=== PATIENT | male | born 1950 | race Caucasian/White ===

== ENCOUNTER 2024-05-13 09:48 | Inpatient (IN) | payer MEDICARE, SELFPAY ==
[2024-05-13] VITALS (28 sets, daily range): BP systolic 111–220; BP diastolic 67–113; PULSE 67–109; RESP 12–22; TEMP 36.2–36.8; O2SAT 94–99; BMI 28.3; BMI 28.2
--- NOTE | 2024-05-13 | ECG_ITS ---
Test Reason : hypertesive Blood Pressure : */* mmHG Vent. Rate : 74 BPM Atrial Rate : 74 BPM P-R Int : 176 ms QRS Dur : 96 ms QT Int : 408 ms P-R-T Axes : 16 48 83 degrees QTcB Int : 452 ms Normal sinus rhythm Nonspecific ST and T wave abnormality Abnormal ECG No previous ECGs available Referred By: Generic ED Physician Electronically Signed By: ROOSEVELT BYRD
--- NOTE | ~2024-05-13 | MR_ITS ---
EXAMINATION: MR BRAIN WITHOUT CONTRAST CLINICAL INFORMATION: Stroke. COMPARISON: No priors. Correlated to CT dated May 13, 2024. TECHNIQUE: MRI of the brain was obtained using routine sequences without contrast. FINDINGS: No restricted diffusion. No acute intracranial hemorrhage, mass effect, midline shift, hydrocephalus or herniation. Gardner-white matter differentiation is normal. Flow-void signal within the main cerebral vessels is normal. There is a focal 9 mm hyperintense T2 FLAIR signal centered in the left tympanic cavity region. There is a well-defined 27 x 9 mm isointense T1 slightly hyperintense T2 FLAIR no restricted diffusion ovoid shaped signal abnormality in the left preauricular region. Sellar/suprasellar region is normal. Craniocervical junction is intact and normal. Old lacunar infarcts, basal ganglia particularly the left thalamus. Prominence of the extra-axial CSF spaces cerebral sulci and ventricles. Intraocular signal abnormality best seen on the CT examination. Mucosal thickening in the paranasal sinuses. Focal 9 mm hyperintense T2 FLAIR signal in the superficial right parotid gland. MR/MR head/brain wo con IMPRESSION: No acute stroke/nonhemorrhagic ischemia. Old lacunar infarcts. Signal abnormality in the left tympanic cavity a cholesteatoma cannot be excluded. 27 mm soft tissue lesion, left preauricular region. Electronically signed by: Edgardo Akers MD 05/13/2024 04:08 PM [facility]
--- NOTE | ~2024-05-13 | CT_ITS ---
EXAMINATION: CTA NECK WITH CONTRAST (STROKE) CTA BRAIN WITH CONTRAST (STROKE) CLINICAL INFORMATION: Suspect acute stroke. Assess for major vessel occlusion. Right hemibody weakness. Please call report. COMPARISON: Correlated to noncontrast CT brain same day. TECHNIQUE: CTA of the head and neck was performed in the axial plane from the mediastinum to the skull vertex using 70 mL Omnipaque 350 intravenous contrast. Additional reformatted multiplanar images including maximum intensity projection MIP images are generated on the CT workstation. This CT examination was performed using dose optimization techniques as appropriate, variously including the following: *Automated exposure control *Adjustment of mA and/or kV according to patient size (this includes techniques or standardized protocols for targeted exams where dose is matched to indication/reason for exam; i.e. extremities or head) *Use of iterative reconstruction technique DLP: 1541 mGy centimeter. FINDINGS: The degree of stenosis determined by criteria similar to NASCET. Brain: No acute intracranial hemorrhage, mass effect, midline shift, hydrocephalus or herniation. Bilateral multifocal patchy and confluent deep periventricular white matter hypodensities involving centrum semiovale and huber radiata. Calcified plaques in the V4 segments of the vertebral arteries and the cavernous supracavernous segments both ICA. Old lacunar infarct left thalamus. Volume loss in macrocystic encephalomalacia, left occipital region. Intraocular radiopaque increased density, right eyeball. Dystrophic calcifications in the left eyeball. Radiopaque extraocular prosthesis bilaterally. Prominence of the extra-axial CSF spaces cerebral sulci and ventricles. Increased density left tympanic cavity. Mucosal thickening paranasal sinuses. Chest CTA: Calcified plaques in the thoracic aorta. Normal diameter without intraluminal flap. Neck CTA: Right CCA: Normal patency. No focal stenosis. No intimal flap. Right ICA: Normal patency. Calcified plaque in the origin representing 50% stenosis. No intimal flap. Tortuosity. Left CCA: Normal patency. Tortuosity. No focal stenosis. No intimal flap. Left ICA: Irregular mixed plaques in the proximal segment. Normal patency. Less than 50% stenosis in the proximal segment. Tortuosity. No intimal flap. V1/V2 segments of the vertebral arteries: Normal patency. No focal stenosis or intimal flap. Tortuosity at the origin of the left vertebral artery. Both orientating from the subclavian arteries. Left vertebral artery slightly dominant. Brain CTA: Anterior cerebral circulation: ICAs: Mixed plaques in the cavernous and supraclinoid segments. No focal stenosis. No abrupt cut off. MCA's: No focal stenosis. No abrupt cut off. Bifurcation/trifurcation demonstrated no vascular irregularity. ACAs: No focal stenosis. No abrupt cut off. Normal patency. Small caliber right A1 segment. Anterior communicating artery is patent. Ophthalmic arteries are patent without gross vascular irregularity. Left posterior communicating artery is patent. Right posterior communicating artery is not identified likely small caliber. Posterior cerebral circulation: V3/V4 segments are patent without focal stenosis or intimal flap. Left vertebral artery slightly dominant. Posterior inferior cerebellar arteries are patent. Basilar artery is patent without focal stenosis or intimal flap. Superior cerebellar arteries are patent. career coordinator: Abrupt cut off of the left P2/3 segment. Contour irregularity right CCA without abrupt cut off or focal stenosis. Ancillary findings: Paraseptal emphysematous changes in the upper lung lobes. Mosaic pattern both lungs. 10 mm gas-filled abnormality at the 7:00 position of the trachea/superior mediastinum. Multilevel cervical spondylosis more conspicuous at C4-5 and C5-6 level resulting in reverse curvature. CT/CT angio head neck STROKE IMPRESSION: Concerning embolus at the left P2/3 segment. 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 Calcified plaques both carotid bulbs proximal ICAs representing less than 50% stenosis. No dissection. Atherosclerosis disease. This critical test result is communicated to: Physician studio assistant in the emergency department, Lupe Hui at 11:18 AM on May 13, 2024. Electronically signed by: Edgardo Akers MD 05/13/2024 11:14 AM [facility]
--- NOTE | ~2024-05-13 | CT_ITS ---
EXAMINATION: CT HEAD WITHOUT CONTRAST (STROKE PROTOCOL) CLINICAL INFORMATION: Stroke protocol. Right hemibody weakness COMPARISON: None available. TECHNIQUE: Contiguous axial imaging was performed from the skull base to vertex without intravenous administration of contrast. This CT examination was performed using dose optimization techniques as appropriate, variously including the following: *Automated exposure control *Adjustment of mA and/or kV according to patient size (this includes techniques or standardized protocols for targeted exams where dose is matched to indication/reason for exam; i.e. extremities or head) *Use of iterative reconstruction technique DLP: 763 mGy centimeters FINDINGS: No acute intracranial hemorrhage, mass effect, midline shift, hydrocephalus or herniation. Gardner-white matter differentiation is normal. Bilateral multifocal patchy deep periventricular white matter hypodensities involving centrum semiovale and huber radiata. Old lacunar infarct, left thalamus. Posterior cranial fossa contents demonstrated no acute intracranial hemorrhage. Calcified plaques in the V4 segments of the vertebral arteries and the cavernous supracavernous segments both ICAs. Radiopaque material intraocular right eyeball likely treatment of retinal detachment. Radiopaque extraocular or listhesis. Dystrophic calcifications in the left eyeball with the volume loss. Mucosal thickening, paranasal sinuses. Increased density in the left tympanic cavity. Poorly pneumatized mastoid air cells bilaterally. No acute fracture in the bony calvarium. CT/CT head for STROKE IMPRESSION: No acute intracranial hemorrhage. Small vessel occlusive disease. Superimposed acute stroke/nonhemorrhagic ischemia cannot be excluded. This critical result was discussed with physician assistant to the ceo Lupe Hui via [place] connect at 10:40 AM hours on May 13, 2024.. It was ascertained that the content and urgency of the report was understood at the time of direct communication. Electronically signed by: Edgardo Akers MD 05/13/2024 10:40 AM [facility] [place]
--- NOTE | 2024-05-13 10:12 | ED_ITS ---
HPI - General Adult General Chief complaint: Neuro Symptoms/Deficit Stated complaint: RT LEG/ARM NUMBNESS RESOLVED,HTN 231/113 PER EMS Time Seen by Provider: 05/13/24 09:58 Source: patient Mode of arrival: ambulatory Limitations: no limitations History of Present Illness ED Provider: LILI Hui HPI narrative: This is a 74-year-old male past medical history significant for legal blindness, hypertension, hyperlipidemia presenting to the emergency department with episode of right upper and right lower extremity weakness that started at approximately 09:00 he reports all of a sudden he felt like his right side was heavy, this lasted 5-10 minutes and resolved just prior to him coming to the emergency department he states. He still feels like something is off however he is not sure exactly what does not feel right. He tells me has a history of high blood pressure however he is not on medications in the past when they have placed him on blood pressure meds his blood pressure has gone very low so they discontinued them. He denies any falls or trauma. Denies dizziness, vision changes, headache, nausea, abdominal pain, chest pain, shortness of breath. Related Data Allergies Allergy/AdvReac Type Severity Reaction Status Date / Time No Known Allergies Allergy Verified 05/13/24 10:01 [No Known Allergies*] Review of Systems 2 Review of Systems: Yes all other systems are reviewed and are negative PMFSH Past Medical History Attestation statement: The following information was validated with the patient. Source: old records reviewed and nursing notes reviewed Social History Social History Smoked in Last 30 Days: No Use of substances other than those prescribed or required for medical reasons: No Advance Directives: No Advance Directives Information Provided: Yes Do you have a plan to hurt others: No Plan Physical Exam ED Vital Signs: Vital Signs - 24 hr 05/13/24 09:56 05/13/24 10:18 05/13/24 10:46 Temperature 97.6 F Pulse Rate 72 73 79 Respiratory Rate 18 17 14 Blood Pressure 200/100 H 188/90 H 183/93 H Pulse Oximetry 98 96 98 Oxygen Delivery Method Room Air Room Air Room Air 05/13/24 11:00 05/13/24 11:13 05/13/24 11:14 Temperature 97.4 F 97.1 F Pulse Rate 88 75 71 Respiratory Rate 19 16 Blood Pressure 208/82 H 202/103 H 202/103 H Pulse Oximetry 97 97 Oxygen Delivery Method Room Air Room Air 05/13/24 11:17 05/13/24 11:19 05/13/24 11:40 Temperature Pulse Rate 70 72 72 Respiratory Rate 18 14 18 Blood Pressure 193/105 H 180/90 H 152/99 H Pulse Oximetry 97 98 96 Oxygen Delivery Method Room Air Room Air Room Air 05/13/24 11:46 Temperature 97.5 F Pulse Rate 73 Respiratory Rate 16 Blood Pressure 170/78 H Pulse Oximetry 98 Oxygen Delivery Method Room Air BMI result Body Mass Index 28.3 HTN noted - IV labetalol ordered 5 mg IVP Appearance: Alert.? Oriented X3.? No acute distress.? Head: Normocephalic, atraumatic, no step-offs or deformities Eyes: Pupils equal, round and reactive to light. Neck: Normal inspection.? Neck supple.? CVS: Normal heart rate and rhythm.? Pulses normal.? Respiratory: No respiratory distress.? Breath sounds normal.? Abdomen: Soft and nontender.? Skin: Skin warm and dry.? Normal skin color.? Normal skin turgor.? Extremities: No lower extremity edema.? No calf ttp. 5/5 strength to LUE and LLE 5-/5 to RUE and RLE Back: No midline tenderness, no C-spine tenderness, full range of motion, no CVA tenderness bilaterally Neuro: Oriented X 3.? No motor deficit.? No sensory deficit. CN 2-12 intact Course Reevaluation(s) Reevaluation #1: Preliminary read from radiologist Panchito, stroke alert negative for intracranial hemorrhage. CTA pending. Time: 10:36 Reevaluation #2: No acute intracranial hemorrhage noted on dry CT scan of head. Small-vessel occlusive disease noted superimposed acute stroke and not hemorrhagic ischemia can not be excluded. CTA is still pending. Call out to neurology as patient is still in the window for TNK. His symptoms have subsided and his NIH stroke scale is now 0 however very concerning story for possible CVA Time: 11:04 Reevaluation #3: TNK indicated per neurology Dr. Espinosa. Will order TNK at this time patient was re weighed 102.6 kg. Will order 25 mg of IV push and active place at this time. I did go over risks and benefits with this patient he verbalizes understanding. I explained to him he would likely go to the ICU for neurological checks and I explained the risk for bleeding. He is not on a blood thinner. Last known well time is 09:00. Time: 11:10 Additional Reevaluation(s): Patient will be admitted to the ICU Medications Administered Discontinued Medications Generic Name Dose Route Start Last Admin Trade Name Aguilar PRN Reason Stop Dose Admin Iohexol 70 ml 05/13/24 10:39 05/13/24 10:40 Iohexol 350 Mg/Ml 100 Ml Infus..Btl IV 05/13/24 10:40 70 ml ONCE ONE Administration Labetalol HCl 5 mg 05/13/24 10:27 05/13/24 11:14 Labetalol Hcl 100 Mg/20 Ml Vial IVPUSH 05/13/24 10:28 5 mg ONCE ONE Administration Tenecteplase 25 mg 05/13/24 11:10 05/13/24 11:11 Tenecteplase 50 Mg/10 Ml Kit IVPUSH 05/13/24 11:11 25 mg ONCE ONE Administration Medical Decision Making Medical Decision Making [facility] Narrative: 1015 74 year old male presents w/ episode of RUE and RLE weakness that started around 9 am and lasted around 10 minutes PE- 5/5 strength to LUE and LLE 5-/5 to RUE and RLE . HTN noted Hx and pe concerning for TIA versus CVA versus hypertensive urgency/emergency. Will rule out head bleed. Plan labs, imaging. Based off of the last known well time and patient's symptoms stroke alert was paged overhead and patient was taken over to CAT scan immediately. Patient did not come in as a stroke alert into the department, initially he was waiting for placement in the main emergency department became ill over to emergency minor care. NIH Stroke Scale/Score (NIHSS) from [facility] on 05/13/2024 All calculations should be rechecked by clinician prior to use RESULT SUMMARY: 2 points NIH Stroke Scale INPUTS: 1A: Level of consciousness ?> 0 = Alert; keenly responsive 1B: Ask month and age ?> 0 = Both questions right 1C: 'Blink eyes' & 'squeeze hands' ?> 0 = Performs both tasks 2: Horizontal extraocular movements ?> 0 = Normal 3: Visual bhakta ?> 0 = No visual loss 4: Facial palsy ?> 0 = Normal symmetry 5A: Left arm motor drift ?> 0 = No drift for 10 seconds 5B: Right arm motor drift ?> 1 = Drift, but doesn't hit bed 6A: Left leg motor drift ?> 0 = No drift for 5 seconds 6B: Right leg motor drift ?> 1 = Drift, but doesn't hit bed 7: Limb Ataxia ?> 0 = No ataxia 8: Sensation ?> 0 = Normal; no sensory loss 9: Language/aphasia ?> 0 = Normal; no aphasia 10: Dysarthria ?> 0 = Normal 11: Extinction/inattention ?> 0 = No abnormality Differential Diagnosis Differential Diagnoses: The differential diagnosis associated with the presentation includes (Hx and pe concerning for TIA versus CVA versus hypertensive urgency/emergency. Will rule out head bleed.) Admission/Observation Consideration of admission/observation: Escalation of care including admission/observation considered (possible ) Lab Data MDM Lab Attestation statement: I reviewed the patient's lab results. 05/13/24 10:17 05/13/24 10:17 Labs: Lab Results 05/13/24 05/13/24 05/13/24 Range/Units 10:17 10:18 10:20 WBC 5.4 (4.8-10.8) X10*3/uL RBC 5.20 (4.60-5.80) X10*6/uL Hgb 15.3 (14.0-18.0) g/dl Hct 46.0 (42.0-52.0) % MCV 88.5 (80.0-98.0) fL MCH 29.4 (27.0-33.0) pg MCHC 33.3 (31.0-36.0) g/dl RDW 13.1 (11.0-16.0) % Plt Count 238 (160-400) X10*3/uL MPV 9.6 (9.4-12.4) fL Immature Gran % (Auto) 0.4 (0.0-0.4) % Neut % (Auto) 63.0 (45-73) % Lymph % (Auto) 27.2 (20-40) % [place] % (Auto) 6.8 (2-11) % Eos % (Auto) 2.0 (0-4) % Baso % (Auto) 0.6 (0-2) % Lymph # (Auto) 1.5 (1.2-4.9) X10*3/uL [place] # (Auto) 0.4 (0.1-1.2) X10*3/uL Eos # (Auto) 0.1 (0.0-0.4) X10*3/uL Baso # (Auto) 0.0 (0.0-0.2) X10*3/uL Abs Immat Gran (auto) 0.02 (0.00-0.03) X10*3/uL Absolute Neuts (auto) 3.4 (2.0-8.3) x10*3/uL Absolute Nucleated RBC 0.000 (0.0-0.012) X10*3/uL Nucleated RBC % (auto) 0.0 (0.0-0.2) /100WBC Hold Purple Top SEE NOTE PT 10.0 L (10.9-12.4) SEC Whole Blood PT 11.1 (11.1-13.5) sec INR 0.9 (0.9-1.1) Whole Blood INR 0.9 (0.9-1.1) APTT 29.4 (26.0-36.8) SEC Sodium 140 (135-145) mmol/L Potassium 4.1 (3.3-5.1) mmol/L Chloride 108 (96-108) mmol/L Carbon Dioxide 23 (22-29) mmol/L Anion Gap 13 (12-20) BUN 21 H (9-16) mg/dL Creatinine 1.00 (0.5-1.4) mg/dL Estim Creat Clear Calc 30.0 Estimated GFR > 60 POC Glucose 119 H (60-115) mg/dL Random Glucose 108 (60-115) mg/dL Calcium 9.6 (8.4-10.2) mg/dL Troponin I High Sens 3.2 (<3.5-35.0) ng/L Triglycerides 192 H (<150) mg/dL Cholesterol 231 H (<200) mg/dL LDL Cholesterol, Calc 144 H (<100) mg/dL HDL Cholesterol 49 (>40) mg/dL Influenza Type A (PCR) NEGATIVE (Negative) Influenza Type B (PCR) NEGATIVE (Negative) RSV RNA Qual (PCR) NEGATIVE (Negative) SARS-CoV-2 RNA (RT-PCR) NEGATIVE (Negative) Independent Interpretation I performed an independent interpretation of an: EKG (Ventricular rate of 74 NV normal, QRS normal, QT/QTC normal. EKG normal sinus rhythm no ST elevations or inversions concerning for acute ischemia.) and CT Scan (CT/CT angio head neck STROKE IMPRESSION: Concerning embolus at the left P2/3 segment. Consider a left [employer] nonhemorrhagic stroke/acute ischemia. Calcified plaques both carotid bulbs proximal ICAs representing less than 50% stenosis. No dissection. Atherosclerosis disease.) Radiology Impression Discussion of test interpretation with radiology: I have reviewed the radiologist's reading. Independent Historian Clinical information obtained from an independent historian. History obtained from or confirmed by: EMS Critical Care Time Critical Care Time Critical Care Time: Yes Total Critical Care Time: 45 Attestation: I attest to this time spent taking care of the patient, obtaining history, physical, reviewing labs, imaging, treatment of patients condition +/- specialist/hospitalist consult Discharge Plan Discharge Clinical Impression: Right sided weakness Stroke due to embolism Qualifiers: Precerebral and cerebral artery: posterior cerebral artery Laterality of affected vessel: left Qualified Code(s): I63.432 - Cerebral infarction due to embolism of left posterior cerebral artery Patient Disposition: Admitted As Inpatient Print Language: Yakut
--- NOTE | 2024-05-13 10:17 | PC.NURSE ---
pt biba from home c/o right upper and right lower extremity weakness/numbness/tingling x 0900. denies dizziness/lightheadedness/headache. sx resolved upon EMS arrival. hypertensive @ 220/113 upon EMS arrival. 200/100 upon ED arrival. hx HTN - taken off BP medication x a few years ago. provider notified/aware of findings. stroke alert initiated overhead. ekg performed. labs obtained/sent to lab. PT/INR performed by tech. no slurred speech noted. face symmetrical. strength equal bilaterally. pt on RA w/o difficulty. no sob/wob noted. respirations even/unlabored. plan of care ongoing.
[2024-05-13 10:23] LABS: MANUAL DIFF FLAG NO
[2024-05-13 10:28] LABS: Prothrombin Time Whole Bld POC 11.1 sec (11.1-13.5); ~PT, ~INR - Anti Coag Clinic 0.9 (0.9-1.1)
[2024-05-13 10:28] LABS: Basophils Percent Auto 0.6 % (0-2); Eosinophils Absolute Auto 0.1 X10*3/uL (0.0-0.4); Hemoglobin 15.3 g/dl (14.0-18.0); Imm Gran Abs Auto 0.02 X10*3/uL (0.00-0.03); Imm Gran Pct Auto 0.4 % (0.0-0.4); Lymphocytes Absolute Auto 1.5 X10*3/uL (1.2-4.9); Lymphocytes Percent Auto 27.2 % (20-40); Mean Corpuscular HGB Conc 33.3 g/dl (31.0-36.0); Mean Corpuscular Hemoglobin 29.4 pg (27.0-33.0); Mean Corpuscular Volume 88.5 fL (80.0-98.0); Mean Platelet Volume 9.6 fL (9.4-12.4); Monocytes Absolute Auto 0.4 X10*3/uL (0.1-1.2); Monocytes Percent Auto 6.8 % (2-11); Neutrophils Absolute Auto 3.4 x10*3/uL (2.0-8.3); Platelet Count 238 X10*3/uL (160-400); Red Cell Distribution Width 13.1 % (11.0-16.0); White Blood Count 5.4 X10*3/uL (4.8-10.8)
--- NOTE | 2024-05-13 10:28 | PC.NURSE ---
pt to CT at this time.
[2024-05-13 10:29] LABS: Glucose, Whole Blood 119 mg/dL (60-115)
[2024-05-13 10:36] LABS: INTERNATIONAL NORM RATIO 0.9 (0.9-1.1)
[2024-05-13 10:39] LABS: Partial Thromboplastin Time 29.4 SEC (26.0-36.8)
[2024-05-13] MEDS: iohexoL 350 MG/ML 100 ML INFUS..BTL 70 ML IV (10:40)
[2024-05-13 10:42] LABS: Stroke Lab Use COMPLETE
[2024-05-13 10:50] LABS: Anion Gap 13 (12-20); Blood Urea Nitrogen 21 mg/dL (9-16); Calcium 9.6 mg/dL (8.4-10.2); Carbon Dioxide 23 mmol/L (22-29); Chloride 108 mmol/L (96-108); Cholesterol 231 mg/dL (<200); Estimated Glomerular Filt Rate > 60; Glucose Random 108 mg/dL (60-115); HDL Cholesterol 49 mg/dL (>40); LDL Cholesterol Calculated 144 mg/dL (<100); Potassium 4.1 mmol/L (3.3-5.1); Sodium 140 mmol/L (135-145); Triglycerides 192 mg/dL (<150)
[2024-05-13 10:52] LABS: Troponin-I High Sensitivity 3.2 ng/L (<3.5-35.0)
--- NOTE | 2024-05-13 10:59 | PC.NURSE ---
pt returned from CT. neuros remain intact. pt remains hypertensive - otherwise vss and up to date. nsr on the pvc monitor. pt assessed by stroke educator, Rosa Maria, RN at this time. pt also passed nursing swallow evaluation w/o difficulty. no complications noted. respirations remain even/unlabored. plan of care ongoing. call scott placed within reach.
[2024-05-13 11:08] LABS: Influenza A PCR NEGATIVE (Negative); Influenza B PCR NEGATIVE (Negative); Resp Syncy Virus RNA Qual PCR NEGATIVE (Negative); SARS COV2 PCR INHOUSE NEGATIVE (Negative)
[2024-05-13] MEDS: Tenecteplase 50 MG/10 ML KIT 25 MG IVPUSH (11:11)
[2024-05-13] MEDS: Labetalol HCL 100 MG/20 ML VIAL IVPUSH (11:14)
--- NOTE | 2024-05-13 11:14 | PC.NURSE ---
pt notified/aware of CTA results. pt speaking w/ provider in regards to plan of care at this time. pt noted to be TNK candidate. medication administered per provider order. medication verified w/ Genesis Mohr RN. BP wnl prior to medication administration. BP noted to increase s/p medication administration. labetalol administered per provider order. effectiveness pending. frequent vital signs being obtained. respirations remain even/unlabored. plan of care ongoing.
--- NOTE | 2024-05-13 11:30 | PC.NURSE ---
pt speaking w/ dr. brantley at this time.
--- NOTE | 2024-05-13 11:36 | PM.NEUROCN ---
History of Present Illness Data of Consult Service Date: 05/13/24 Primary Care Provider: Aniket Sheffield MD [facility] Reason for consult: Acute stroke 74 years old man with underlying history of hypertension and blindness from complications of glaucoma and multiple eye surgeries for different reasons including retinal detachment came to hospital with new onset of right-sided weakness. He was fine at 09:00 after which she noted numb and weak feeling in his right hand and when he tried to get up his right leg was giving away and was weak. There was no associated headache or speech or language difficulty any came to hospital. In emergency room he was noted to have mild right-sided weakness but no speech or language problem. After discussing his CTA results he was treated with TNK for acute ischemic infarction. I saw him after that in emergency room when he was feeling better. Review of Systems Review of Systems: No recent cold or flu-like illness or headache PMFSH Social History Social History Smoked in Last 30 Days: No Use of substances other than those prescribed or required for medical reasons: No Advance Directives: No Advance Directives Information Provided: Yes Do you have a plan to hurt others: No Plan Meds Allergies Allergy/AdvReac Type Severity Reaction Status Date / Time No Known Allergies Allergy Verified 05/13/24 10:01 [No Known Allergies*] Physical Exam Vital Signs: Vital Signs: Last Vital Signs Temp 97.1 F 05/13/24 11:13 Pulse 72 05/13/24 11:19 Resp 14 05/13/24 11:19 BP 180/90 H 05/13/24 11:19 Pulse Ox 98 05/13/24 11:19 O2 Del Method Room Air 05/13/24 11:19 BMI result Body Mass Index 28.3 Neuro: Other: He is alert and awake with normal spontaneity of speech fluency comprehension and affect. Pupils are nonreactive and irregular. Extraocular muscles are intact. He could not see me even close to his eyes. There was no pronator drift. There was no focal leg weakness. Deep tendon reflexes are absent with flexor plantars. Speech was normal. Results Labs 05/13/24 10:17 05/13/24 10:17 Labs: Short CBC 05/13/24 Range/Units 10:17 WBC 5.4 (4.8-10.8) X10*3/uL Hgb 15.3 (14.0-18.0) g/dl Hct 46.0 (42.0-52.0) % Plt Count 238 (160-400) X10*3/uL [facility] 05/13/24 10:17 Sodium 140 Potassium 4.1 Chloride 108 Carbon Dioxide 23 BUN 21 H Creatinine 1.[address] revealed mild cerebral atrophy and mild microvascular ischemic changes but no acute lesion. CTA revealed left P2/P3 embolus. Assessment and Plan (1) Stroke due to embolism: Qualifiers: Precerebral and cerebral artery: posterior cerebral artery Laterality of affected vessel: left Qualified Code(s): I63.432 - Cerebral infarction due to embolism of left posterior cerebral artery Status: Acute 74 years old man with acute left posterior cerebral artery embolic ischemic infarction with uncontrolled hypertension. He has underlying blindness complicated evaluation. Dizzy and was made to treat him with TNK to avoid further disability as there was no intra-arterial treatment available for this kind of lesion and it could very well worsened. On the other hand this type of lesion can easily be resolved with TNK. At this time he was doing fine and my recommendation is to admit him to ICU for a day for blood pressure management as per tPA protocol. I recommend starting him on anticoagulation at least for next 6 months starting 24 hours after TNK does. An MRI of brain without contrast is also recommended. Statin and blood pressure control is recommended. At the same time avoid hypotension. Procedures Date of Service Date of Service: 05/13/24
--- NOTE | 2024-05-13 11:38 | MHC.STROKE ---
Notified by Lupe PEARSON regarding stroke alert that she initiated in [facility] Pt in CT scan upon my arrival Pt was not called in as a stroke alert, however after nurse triage and provider eval, stroke alert initiated in ED. Pt was hypertensive for EMS and upon arrival to ED See vital sign hx. NIH 2 upon initial eval by provider. When reassessed after CT scan, NIH 0. Pt reports no complaints at this time. Pt states that he felt well yesterday. Went to bed around 11pm. Woke this am around 0630 and felt well. Pt states that around 0900 he started with some numbness in his finger on the right hand. This continued to increase and patient started with heaviness to RUE and LLE. Patient extremely hypertensive for EMS. Upon arrival to ED, blood pressure still elevated. After provider spoke with Dr. Espinosa, TNK ordered and administered at 1111 25mg Stroke Education provided to patient. Stroke pamphlet discussed in detail. Pt with hx of blindness. Risk factors discussed including medical history, medication/med hx, diet, activity Dr. Espinosa evaluated patient at bedside.
--- NOTE | 2024-05-13 11:57 | P.HPCC_ITS ---
History of Present Illness Date of Service: 05/06/24 Attending physician on admission: Stephanie Landa Chief Complaint: R Upper and Lower Extremity Weakness Patient is a 74 Y M w/ glaucoma c/b blindness, hypertension, presenting initially to emergency department on 05/13 w/ transient R UE and LE weakness that began at 09:00 and reportedly resolved by presentation to emergency department; patient was stroke code, CT H unremarkable, CTA H/N c/f L P2 and P3 occlusion, given TNK at around 11:15, admitted ICU for post-TNK care Review of Systems 2 Review of Systems: Yes all other systems are reviewed and are negative [facility] Social History Social History Household Members: None Housing: House Do you presently have visiting nurse or other home services: No Patient Tobacco Use Status: Never used Tobacco Smoked in Last 30 Days: No Use of substances other than those prescribed or required for medical reasons: No Have you been hit, kicked, punched, or otherwise hurt by someone within the past year? If so, by whom?: No Do you feel safe in your current relationship?: No Current Relationship Is there a partner from a previous relationship who is making you feel unsafe now?: No Are you made to feel afraid or neglected: No Advance Directives: No Advance Directives Information Provided: Yes Do you have a plan to hurt others: No Plan Nutrition Risks: No Nutritional Risk Poor oral hygiene: No Meds Allergies Allergy/AdvReac Type Severity Reaction Status Date / Time No Known Allergies Allergy Verified 05/13/24 10:01 [No Known Allergies*] Active Medications: Current Medications Sodium Chloride (0.9 % Sodium Chloride Flush 3 Ml Syringe) 3 ml IVFLUSH [facility] Home Medications ?Medication ?Instructions ?Recorded ?Confirmed ?Last Taken ?Type azelastine 137 mcg (0.1 %) nasal 2 spray intranasal BID 05/13/24 Unknown History spray cyclosporine 0.05 % eye drops in a 1 drp ophthalmic-Right BID 05/13/24 Unknown History dropperette (Restasis) omeprazole 40 mg capsule,delayed 40 mg PO DAILY 05/13/24 Unknown History release prednisolone acetate 1 % eye 1 drp ophthalmic-Right QID 05/13/24 Unknown History drops,suspension (Pred Forte) venlafaxine 37.5 mg 37.5 mg PO DAILY 05/13/24 Unknown History capsule,extended release 24 hr venlafaxine 75 mg capsule,extended 75 mg PO DAILY 05/13/24 Unknown History release 24 hr Physical Exam 2 Vital Signs: Vital Signs: Last Vital Signs Temp 97.5 F 05/13/24 11:46 Pulse 73 05/13/24 11:46 Resp 16 05/13/24 11:46 BP 170/78 H 05/13/24 11:46 Pulse Ox 98 05/13/24 11:46 O2 Del Method Room Air 05/13/24 11:46 BMI result Body Mass Index 28.3 Const: General: cooperative, healthy appearing, comfortable, no acute distress, well developed, alert, awake and Physically active O rientation/consciousness: patient oriented x3 HEENT: Head: Yes normal to inspection, Yes normocephalic and Yes atraumatic Eyes: Other: appreciable hazy corneas bilaterally Neck: Neck: Yes normal visual inspection, Yes full ROM, Yes no meningeal signs, Yes trachea midline and Yes supple Chest: Chest palpation & inspection: normal inspection of the chest Resp: Other: no appreciable rales, rhonchi, wheezing Effort & Inspection: normal respiratory effort Cardio: Rate: regular rate Rhythm: regular rhythm GI: Inspection: Yes normal to inspection, No Abdominal wall edema and No distended Palpation (GI): Soft to palpation, not firm, nontender, no guarding and not rigid Skin: General skin exam: no rashes or lesions noted Neuro: General: patient oriented x3, tone normal, moves all extremities, no meningeal signs and no focal motor deficits Extrem: General: Yes normal to inspection, Yes full ROM, Yes capillary refill normal and Yes no clubbing, cyanosis or edema Psych: Appearance: grossly normal Results Labs 05/13/24 10:17 05/13/24 10:17 Labs: Laboratory Results - last 24 hr 05/13/24 05/13/24 05/13/24 10:17 10:18 10:20 MCV 88.5 MCH 29.4 MCHC 33.3 RDW 13.1 Plt Count 238 MPV 9.6 Immature Gran % (Auto) 0.4 Neut % (Auto) 63.0 Lymph % (Auto) 27.2 Blair % (Auto) 6.8 Eos % (Auto) 2.0 Baso % (Auto) 0.6 Lymph # (Auto) 1.5 Blair # (Auto) 0.4 Eos # (Auto) 0.1 Baso # (Auto) 0.0 Abs Immat Gran (auto) 0.02 Absolute Neuts (auto) 3.4 Absolute Nucleated RBC 0.000 Nucleated RBC % (auto) 0.0 Hold Purple Top SEE NOTE PT 10.0 L Whole Blood PT 11.1 INR 0.9 Whole Blood INR 0.9 APTT 29.4 Anion Gap 13 Estim Creat Clear Calc 30.0 Estimated GFR > 60 POC Glucose 119 H Random Glucose 108 Calcium 9.6 Troponin I High Sens 3.2 Triglycerides 192 H Cholesterol 231 H LDL Cholesterol, Calc 144 H HDL Cholesterol 49 Influenza Type A (PCR) NEGATIVE Influenza Type B (PCR) NEGATIVE RSV RNA Qual (PCR) NEGATIVE SARS-CoV-2 RNA (RT-PCR) NEGATIVE Imaging Radiologist's Impressions: Impressions Head CT 05/13/24 10:23 IMPRESSION: No acute intracranial hemorrhage. Small vessel occlusive disease. Superimposed acute stroke/nonhemorrhagic ischemia cannot be excluded. This critical result was discussed with physician preschool teacher's assistant Lupe Hui via [employer] connect at 10:40 AM hours on May 13, 2024.. It was ascertained that the content and urgency of the report was understood at the time of direct communication. Electronically signed by: Edgardo Akers MD 05/13/2024 10:40 AM [facility] Head/Neck CTA 05/13/24 10:29 IMPRESSION: Concerning embolus at the left P2/3 segment. Consider a left TELESALES CONSULTANT nonhemorrhagic stroke/acute ischemia. Calcified plaques both carotid bulbs proximal ICAs representing less than 50% stenosis. No dissection. Atherosclerosis disease. This critical test result is communicated to: Physician preschool teacher's assistant in the emergency department, Lupe Hui at 11:18 AM on May 13, 2024. Electronically signed by: Edgardo Akers MD 05/13/2024 11:14 AM [employer] [facility] Assessment and Plan (1) Stroke due to embolism: Qualifiers: Laterality of affected vessel: left Precerebral and cerebral artery: p osterior cerebral artery Qualified Code(s): I63.432 - Cerebral infarction due to embolism of left posterior cerebral artery Status: Acute Plan Patient is a 74 Y M w/ glaucoma c/b blindness, hypertension, hyperlipidemia, presenting initially to emergency department on 05/13 w/ transient R UE and LE weakness that began at 09:00 and reportedly resolved by presentation to emergency department; patient was stroke code, CT H unremarkable, CTA H/N c/f L P2 and P3 occlusions, given TNK at around 11:15, admitted ICU for post-TNK care N: L P2 and P3 occlusions, s/p TNK; currently w/o signs/symptoms; post-TNK precautions including q1h neuro exams CV: hypertension, hydralazine PRN R: no acute issues GI: NPO, speech/swallow, advance diet as tolerated : no acute issues H: no acute issues ID: no stigmata of infection E: no acute issues P: no acute issues
--- NOTE | 2024-05-13 12:13 | PC.NURSE ---
report given to NEHA Marin in the ICU at this time.
--- NOTE | 2024-05-13 13:41 | PHA.MEDREC ---
Addendum entered by Gordon Candelario RPh 05/13/24 14:24: MED REC CHECKED BY [facility] Original Note: Pharmacy Consult ? Medication Reconciliation Pharmacy has completed the medication reconciliation. Spoke with patient and he was able to confirmed his medications. The patient confirmed he is taking the Venlafaxine 75mg tab once daily and confirmed his Dr decreased that last month to 37.5mg once daily but within the week or 2 of getting it he was increased back to 75mg once daily. He states he took his medications this morning.
--- NOTE | 2024-05-13 14:39 | MHC.CM.PN ---
Met w/pt and his two sons to discuss d/c planning. Pt resides alone and is independent with all care needs, has no DME or services and can drive. IMM in chart: HCP partially completed as pt was having an Echo and unable to sign document. Sons to transport pt to home: services not anticipated.
[2024-05-13 16:47] LABS: Glucose, Whole Blood 93 mg/dL (60-115)
[2024-05-13] MEDS: 0.9 % Sodium Chloride Flush 3 ML SYRINGE IVFLUSH ×2 (17:00→21:08)
--- NOTE | 2024-05-13 17:00 | CA_ITS ---
Transthoracic Echocardiogram Patient (Last, First, Middle): Herbie Ledesma A Gender: Male Date of : 1950 Age: 74 Procedure Date: 05/13/2024 Procedure Type: Transthoracic Echocardiogram Location: ICU Height: 190.5 cm Weight: 102.51 kg BSA: 2.31 m2 Heart Rate: bpm BP: 178 / 91 mmHg Tile Setter Apprentice: Referring MD: Stephanie Landa MD Symptoms: s/p CVA Study Quality: Good ECG Rhythm: Sinus Conclusions: - The left ventricular systolic function is normal. The calculated ejection fraction is 61% by biplane method. - No obvious valvular pathology seen on this study. Findings Left Ventricle Normal left ventricular cavity size. There is mildly increased left ventricular wall thickness. The left ventricular systolic function is normal. The calculated ejection fraction is 61% by biplane method. There is no evidence of regional wall motion abnormalities. Evidence suggests grade I (mild) diastolic dysfunction. Right Ventricle Normal right ventricular cavity size and systolic function. Aortic Valve There is a normal trileaflet aortic valve. There is no aortic valve stenosis. There is no aortic valve regurgitation. Mitral Valve The mitral valve appears normal. There is no mitral valve regurgitation. There is no mitral valve stenosis. Pulmonic Valve The pulmonic valve is likely normal. Tricuspid Valve There is no tricuspid valve regurgitation. There is no evidence of pulmonary hypertension. Great Vessels The asc aorta is normal in size. Venous The inferior vena cava is normal in size and collapses greater than 50% with inspiration. Pericardium/Pleural There is no evidence of pericardial effusion. Prior Study Comparison No prior study available for comparison. Recommendations, Care & Conclusions No obvious valvular pathology seen on this study. Measurements 2D Linear Measurements IVSd: 1.21 0.6-0.9/0.6-1.0 cm LVIDd: 4.78 3.9-5.3/4.2-5.9 cm LVIDd Index: 2.07 2.4-3.2/2.2-3.1 cm/m2 LVIDs: 2.72 2.0-3.6 cm LVPWd: 1.25 0.7-1.1 cm Ao Root: 3.30 2.1-3.5 cm LA Diam: 3.80 2.7-3.8/3.0-4.0 cm LAIDs Index: 1.65 1.5-2.3 cm/m2 LV Mass: 281.10 67-162/88-224 g LV Mass Index: 121.69 43-95/49-115 g/m2 LVOT Diam: 2.20 3.0+(-)1.3 cm 2D Systolic Function EF 4C: 57.60 >55% EF 2C: 63.10 >55% EF BiP: 60.70 >55% Mitral Valve MV Pk E: 0.69 MV PK A: 1.12 MV Decel Time: 284.00 E/A: 0.60 E'Lateral: 2.83 E'Medial: 7.18 E/E' Med: 9.60 E/E' Lat: 24.40 PHT: 83.00 MVA PHT: 2.65 Decel [place]oux: 2.43 Aortic Valve AoV Pk Juan M: 1.29 AoV Pk Grad: 7.00 LVOT LVOT Pk Juan M: 0.93 LVOT Mn Juan M: 0.64 LVOT VTI: 0.21 LVOT Pk Grad: 3.00 LVOT Mn Grad: 2.00 LVOT Diam: 2.20 LVOT Area: 3.80 Diastolic Function MV Pk E: 0.69 MV Pk A: 1.12 E/A: 0.60 E'Medial: 7.18 E/E' Med: 9.60 E' Laterial: 2.83 E/E' Lat: 24.40 Right Ventricle TAPSE (mm): 27.00 Tricuspid Valve TR Pk Juan M: 2.16 TR Pk Grad: 19.00 RA Press: 3.00 RVSP: 22.00 Great Vessels Aorta Ao Root-2D: 3.30 2.0-3.7 cm Ao Asc: 3.20 2.1-3.4 cm Pulmonary Valve PV Pk Juan M: 1.21 Peak PV Grad: 6.00 Updated in Other Vendor System with Status of Final Rojas Sandoval MD electronically signed on 05/13/2024 3:51:30 PM with status of Final
--- NOTE | 2024-05-13 17:33 | MHC.SL.SWA ---
Speech Pathologist Impression: WFL Risk of Aspiration Due to: Neurological Condition Dysphasia Diet Status: Start on REGULAR/THIN Liquid Consistency and Strategies for Safe Swallow: Liquid Intake Recommendation: Thin Solid Food Consistency: Dietary Recommendations: Regular Additional Modifications to Solid Foods: Recommend REGULAR solids and THIN liquids, pills WHOLE in LIQUID. Oral Medication Intake: Whole with Liquid Please contact the pharmacy regarding appropriate crushable or liquid drug formulations that are available whenever modified delivery is recommended. Compensatory Strategies and Precautions to be Taken for Safe Swallow: Sitting Upright (90 deg) Small Bites and Sips Alternate Liquids/Solids Rate of Ingestion Change Supervision While Eating and Drinking for Safe Swallow: Intermittent Supervision Recommendation for Speech: NA:Typical Evaluation Comment: Swallow physiology in the oral and pharyngeal phase deemed WFL. Please re-refer w/ any changes or further concern. Frequency/Duration: Date Range for Service Req: Timeline to reassess: Supervisor Special Effects Clinican/Clinical Fellow: No Supervisory Statement: I have reviewed and agree with the student/clinical fellow's documentation: N/A Speech Language Pathologist: Mercedes Borges M.A., CCC-ADMINISTRATIVE SPECIALIST
[2024-05-13 21:00] LABS: Glucose, Whole Blood 85 mg/dL (60-115)
[2024-05-14] VITALS (15 sets, daily range): BP systolic 126–164; BP diastolic 63–100; PULSE 61–89; RESP 10–20; TEMP 36.1–37.3; O2SAT 91–97; BMI 28.1
[2024-05-14] MEDS: Omeprazole 40 MG CAPSULE.DR PO (05:23)
[2024-05-14 05:35] LABS: MANUAL DIFF FLAG NO
[2024-05-14 05:46] LABS: Basophils Percent Auto 0.5 % (0-2); Eosinophils Absolute Auto 0.1 X10*3/uL (0.0-0.4); Eosinophils Percent Auto 2.5 % (0-4); Hematocrit 45.8 % (42.0-52.0); Hemoglobin 15.5 g/dl (14.0-18.0); Imm Gran Abs Auto 0.02 X10*3/uL (0.00-0.03); Imm Gran Pct Auto 0.4 % (0.0-0.4); Lymphocytes Absolute Auto 1.5 X10*3/uL (1.2-4.9); Lymphocytes Percent Auto 27.4 % (20-40); Mean Corpuscular HGB Conc 33.8 g/dl (31.0-36.0); Mean Corpuscular Hemoglobin 29.8 pg (27.0-33.0); Mean Corpuscular Volume 88.1 fL (80.0-98.0); Mean Platelet Volume 9.2 fL (9.4-12.4); Monocytes Absolute Auto 0.4 X10*3/uL (0.1-1.2); Monocytes Percent Auto 7.1 % (2-11); Neutrophils Absolute Auto 3.5 x10*3/uL (2.0-8.3); Neutrophils Percent Auto 62.1 % (45-73); Platelet Count 245 X10*3/uL (160-400); Red Cell Distribution Width 13.1 % (11.0-16.0); White Blood Count 5.6 X10*3/uL (4.8-10.8)
[2024-05-14 05:48] LABS: Estimated Average Glucose 117 mg/dL; Hemoglobin A1C 155.2206 umol/L; Hemoglobin A1c % 5.7 % (<6.0); Total Hemoglobin (HGBA1C) 4022.4335 umol/L
[2024-05-14 05:56] LABS: Anion Gap 13 (12-20); Blood Urea Nitrogen 20 mg/dL (9-16); Calcium 9.1 mg/dL (8.4-10.2); Carbon Dioxide 22 mmol/L (22-29); Chloride 108 mmol/L (96-108); Cholesterol 224 mg/dL (<200); Creatinine Clr Calc Pharmacy 87.8; Estimated Glomerular Filt Rate > 60; Glucose Random 100 mg/dL (60-115); HDL Cholesterol 44 mg/dL (>40); LDL Cholesterol Calculated 133 mg/dL (<100); Magnesium 2.2 mg/dL (1.6-2.6); Phosphorus 3.4 mg/dL (2.7-4.5); Potassium 3.7 mmol/L (3.3-5.1); Sodium 139 mmol/L (135-145); Triglycerides 238 mg/dL (<150)
[2024-05-14 07:41] LABS: Glucose, Whole Blood 99 mg/dL (60-115)
--- NOTE | 2024-05-14 08:40 | P.PNCC_ITS ---
Subjective Subjective Date of Service: 05/14/24 Interval History: no significant overnight events Critical Care Time (minutes): 0 Physical Exam 2 Vital Signs: Vital Signs: Last Vital Signs Temp 97.0 F 05/14/24 08:00 Pulse 72 05/14/24 08:00 Resp 15 05/14/24 08:00 BP 159/80 H 05/14/24 08:00 Pulse Ox 94 05/14/24 08:00 O2 Del Method Room Air 05/14/24 08:00 BMI result Body Mass Index 28.1 Const: General: cooperative, healthy appearing, comfortable, no acute distress, well developed, alert, awake and Physically active O rientation/consciousness: patient oriented x3 HEENT: Head: Yes normal to inspection, Yes normocephalic and Yes atraumatic Eyes: General: appearance normal, both eyes and all related structures Neck: Neck: Yes normal visual inspection, Yes full ROM, Yes no meningeal signs, Yes trachea midline and Yes supple Chest: Chest palpation & inspection: normal inspection of the chest Resp: Other: no appreciable rales, rhonchi, wheezing Effort & Inspection: normal respiratory effort Cardio: Rate: regular rate Rhythm: regular rhythm GI: Inspection: Yes normal to inspection, No Abdominal wall edema and No distended Palpation (GI): Soft to palpation, not firm, nontender, no guarding and not rigid Skin: General skin exam: no rashes or lesions noted Neuro: General: patient oriented x3, tone normal, moves all extremities, no meningeal signs and no focal motor deficits Extrem: General: Yes normal to inspection, Yes full ROM, Yes capillary refill normal and Yes no clubbing, cyanosis or edema Psych: Appearance: grossly normal Objective Data Labs 05/14/24 05:19 05/14/24 05:19 Labs: Laboratory Results - last 24 hr 05/13/24 05/13/24 05/13/24 10:17 10:18 10:20 WBC 5.4 RBC 5.20 Hgb 15.3 Hct 46.0 MCV 88.5 MCH 29.4 MCHC 33.3 RDW 13.1 Plt Count 238 MPV 9.6 Immature Gran % (Auto) 0.4 Neut % (Auto) 63.0 Lymph % (Auto) 27.2 [place] % (Auto) 6.8 Eos % (Auto) 2.0 Baso % (Auto) 0.6 Lymph # (Auto) 1.5 [place] # (Auto) 0.4 Eos # (Auto) 0.1 Baso # (Auto) 0.0 Abs Immat Gran (auto) 0.02 Absolute Neuts (auto) 3.4 Absolute Nucleated RBC 0.000 Nucleated RBC % (auto) 0.0 Hold Purple Top SEE NOTE PT 10.0 L Whole Blood PT 11.1 INR 0.9 Whole Blood INR 0.9 APTT 29.4 Sodium 140 Potassium 4.1 Chloride 108 Carbon Dioxide 23 Anion Gap 13 BUN 21 H Creatinine 1.00 Estim Creat Clear Calc 30.0 Estimated GFR > 60 POC Glucose 119 H Random Glucose 108 Estimat Average Glucose Hemoglobin A1c % Calcium 9.6 Phosphorus Magnesium Troponin I High Sens 3.2 Triglycerides 192 H Cholesterol 231 H LDL Cholesterol, Calc 144 H HDL Cholesterol 49 Influenza Type A (PCR) NEGATIVE Influenza Type B (PCR) NEGATIVE RSV RNA Qual (PCR) NEGATIVE SARS-CoV-2 RNA (RT-PCR) NEGATIVE 05/13/24 05/13/24 05/14/24 16:42 20:56 05:19 WBC 5.6 RBC 5.20 Hgb 15.5 Hct 45.8 MCV 88.1 MCH 29.8 MCHC 33.8 RDW 13.1 Plt Count 245 MPV 9.2 L Immature Gran % (Auto) 0.4 Neut % (Auto) 62.1 Lymph % (Auto) 27.4 [place] % (Auto) 7.1 Eos % (Auto) 2.5 Baso % (Auto) 0.5 Lymph # (Auto) 1.5 [place] # (Auto) 0.4 Eos # (Auto) 0.1 Baso # (Auto) 0.0 Abs Immat Gran (auto) 0.02 Absolute Neuts (auto) 3.5 Absolute Nucleated RBC 0.000 Nucleated RBC % (auto) 0.0 Hold Purple Top PT Whole Blood PT INR Whole Blood INR APTT Sodium 139 Potassium 3.7 Chloride 108 Carbon Dioxide 22 Anion Gap 13 BUN 20 H Creatinine 0.97 Estim Creat Clear Calc 87.8 Estimated GFR > 60 POC Glucose 93 85 Random Glucose 100 Estimat Average Glucose 117 Hemoglobin A1c % 5.7 Calcium 9.1 Phosphorus 3.4 Magnesium 2.2 Troponin I High Sens Triglycerides 238 H Cholesterol 224 H LDL Cholesterol, Calc 133 H HDL Cholesterol 44 Influenza Type A (PCR) Influenza Type B (PCR) RSV RNA Qual (PCR) SARS-CoV-2 RNA (RT-PCR) 05/14/24 07:37 WBC RBC Hgb Hct MCV MCH MCHC RDW Plt Count MPV Immature Gran % (Auto) Neut % (Auto) Lymph % (Auto) [place] % (Auto) Eos % (Auto) Baso % (Auto) Lymph # (Auto) [place] # (Auto) Eos # (Auto) Baso # (Auto) Abs Immat Gran (auto) Absolute Neuts (auto) Absolute Nucleated RBC Nucleated RBC % (auto) Hold Purple Top PT Whole Blood PT INR Whole Blood INR APTT Sodium Potassium Chloride Carbon Dioxide Anion Gap BUN Creatinine Estim Creat Clear Calc Estimated GFR POC Glucose 99 Random Glucose Estimat Average Glucose Hemoglobin A1c % Calcium Phosphorus Magnesium Troponin I High Sens Triglycerides Cholesterol LDL Cholesterol, Calc HDL Cholesterol Influenza Type A (PCR) Influenza Type B (PCR) RSV RNA Qual (PCR) SARS-CoV-2 RNA (RT-PCR) Progress Note: A&P Assessment and plan (1) Stroke due to embolism: Status: Acute Plan Patient is a 74 Y M w/ glaucoma c/b blindness, hypertension, hyperlipidemia, presenting initially to emergency department on 05/13 w/ transient R UE and LE weakness that began at 09:00 and reportedly resolved by presentation to emergency department; patient was stroke code, CT H unremarkable, CTA H/N c/f L P2 and P3 occlusions, given TNK at around 11:15, admitted ICU for post-TNK care N: L P2 and P3 occlusions, s/p TNK; currently w/o signs/symptoms; s/p post-TNK protocol; MRI 05/13 not suggestive of acute infarct, suggestive of old lacunar infarcts; echo 05/13 grossly unremarkable; appeciate neurology recommendations CV: hypertension, if HR 60s, hydralazine PRN, otherwise consider labetalol PRN R: no acute issues GI: cardiac diet : no acute issues H: no acute issues ID: no stigmata of infection E: no acute issues P: no acute issues Quality Stroke Does the patient have a stroke diagnosis?: Yes Reason for No Anti-thrombotic by Day Two: N/A - Med Ordered VTE Prior VTE?: No VTE Risk Level:: Medical - moderate - high VTE Device Contraindication: N/A - Device Ordered VTE Drug Contraindication: Treatment Not Tolerated
[2024-05-14] MEDS: 0.9 % Sodium Chloride Flush 3 ML SYRINGE IVFLUSH ×2 (09:29→16:49)
[2024-05-14] MEDS: Venlafaxine HCl ER 75 MG CAP.ER.24H PO (09:29)
[2024-05-14] MEDS: Aspirin 81 MG TAB.CHEW PO (12:24)
[2024-05-15] MEDS: 0.9 % Sodium Chloride Flush 3 ML SYRINGE IVFLUSH ×2 (00:41→09:11)
[2024-05-15 02:08] VITALS: O2SAT 92
[2024-05-15 03:38] VITALS: BP 132/83; PULSE 81; RESP 18; TEMP 36.3; O2SAT 93
[2024-05-15 05:41] VITALS: BMI 27.6
[2024-05-15] MEDS: Omeprazole 40 MG CAPSULE.DR PO (05:52)
[2024-05-15 06:25] LABS: MANUAL DIFF FLAG NO
[2024-05-15 06:27] LABS: Basophils Percent Auto 0.5 % (0-2); Eosinophils Absolute Auto 0.1 X10*3/uL (0.0-0.4); Eosinophils Percent Auto 2.3 % (0-4); Hematocrit 46.6 % (42.0-52.0); Hemoglobin 15.6 g/dl (14.0-18.0); Imm Gran Abs Auto 0.02 X10*3/uL (0.00-0.03); Imm Gran Pct Auto 0.3 % (0.0-0.4); Lymphocytes Absolute Auto 1.8 X10*3/uL (1.2-4.9); Lymphocytes Percent Auto 30.3 % (20-40); Mean Corpuscular HGB Conc 33.5 g/dl (31.0-36.0); Mean Corpuscular Hemoglobin 29.9 pg (27.0-33.0); Mean Corpuscular Volume 89.3 fL (80.0-98.0); Mean Platelet Volume 9.6 fL (9.4-12.4); Monocytes Absolute Auto 0.5 X10*3/uL (0.1-1.2); Neutrophils Absolute Auto 3.5 x10*3/uL (2.0-8.3); Neutrophils Percent Auto 58.6 % (45-73); Platelet Count 254 X10*3/uL (160-400); Red Blood Count 5.22 X10*6/uL (4.60-5.80); Red Cell Distribution Width 12.9 % (11.0-16.0)
[2024-05-15 06:40] LABS: Anion Gap 14 (12-20); Blood Urea Nitrogen 25 mg/dL (9-16); Calcium 9.1 mg/dL (8.4-10.2); Carbon Dioxide 22 mmol/L (22-29); Chloride 107 mmol/L (96-108); Creatinine Clr Calc Pharmacy 74.8; Estimated Glomerular Filt Rate > 60; Glucose Random 105 mg/dL (60-115); Magnesium 2.2 mg/dL (1.6-2.6); Phosphorus 3.4 mg/dL (2.7-4.5); Sodium 139 mmol/L (135-145)
[2024-05-15 07:29] VITALS: BP 147/69; PULSE 77; RESP 18; TEMP 36.8; O2SAT 98
[2024-05-15] MEDS: Venlafaxine HCl ER 75 MG CAP.ER.24H PO (09:07)
[2024-05-15] MEDS: Aspirin 81 MG TAB.CHEW PO (09:07)
--- NOTE | 2024-05-15 10:33 | PM.DS ---
DS: Providers Provider Date of Service: 05/15/24 Date of admission: 05/13/24 11:57 Date of discharge: 05/15/24 Primary care physician: Aniket Sheffield MD Consults: 05/13/24 11:51 Consult to Neurology Routine Consulting Provider: [facility] Reason for consultation: CVA, s/p TNK Has provider been notified: Yes DS: Diagnosis Discharge Diagnosis (1) Stroke due to embolism: Status: Acute DS: Summary Hospital Course Hospital Course: Patient is a 74 Y M w/ glaucoma c/b blindness, hypertension, presenting initially to emergency department on 05/13 w/ transient R UE and LE weakness that began at 09:00 and reportedly resolved by presentation to emergency department; patient was stroke code, CT H unremarkable, CTA H/N c/f L P2 and P3 occlusion, given TNK at around 11:15, admitted ICU for post-TNK care. Hospital Course Was observed 24 hours and ICU with complete resolution of his symptoms. He was seen in consultation by Physical therapy and deemed appropriate for home with services. He was observed 24 hours on telemetry in his meds were adjusted; atorvastatin/Eliquis/aspirin/amlodipine were added as per neuro recommendations. At this point in time he is medically acceptable for discharge to home with services. He will need close follow up with his PCP for blood pressure control and a referral to Neurology for follow up. Neurology recommends anticoagulation for Time Attestation Discharge Coordination Time (in mins): 35 Quality: Safe Use of Opioids Does Pt have an Active Cancer Diagnosis on the Problem List?: No Quality: Stroke Does the patient have a stroke diagnosis?: Yes Reason for No Anti-thrombotic at DC: Not indicated Reason for No Anticoagulant at DC: N/A - Med Ordered Reason Not Initiating IV-Tpa: N/A - Med Ordered Reason for No Anti-thrombotic by Day Two: N/A - Med Ordered Reason for No Statin at DC: N/A - Med Ordered Physical Exam Vital Signs: Vital Signs: Last Vital Signs Temp 98.3 F 05/15/24 07:29 Pulse 77 05/15/24 07:29 Resp 18 05/15/24 07:29 BP 147/69 H 05/15/24 07:29 Pulse Ox 98 05/15/24 07:29 O2 Del Method Room Air 05/15/24 07:29 BMI result Body Mass Index 27.6 Const: Other: Awake alert no acute distress ambulating in room without issue Resp: Other: Clear to auscultation bilaterally no rales rhonchi or wheezes Cardio: Other: No S4; positive S1-S2; no S3 murmurs rubs or gallops GI: Other: Soft nontender nondistended normoactive bowel sounds Neuro: Other: Cranial nerves 2-12 grossly intact saved ongoing blindness. Motor is 5/5 all extremities sensation is intact. Cognition appropriate. Gait steady Extrem: Other: No edema bilaterally DS: Data Data Completed and Pending Labs on day of discharge: Laboratory Results - last 24 hr 05/15/24 05:59 WBC 6.0 RBC 5.22 Hgb 15.6 Hct 46.6 MCV 89.3 MCH 29.9 MCHC 33.5 RDW 12.9 Plt Count 254 MPV 9.6 Immature Gran % (Auto) 0.3 Neut % (Auto) 58.6 Lymph % (Auto) 30.3 [place] % (Auto) 8.0 Eos % (Auto) 2.3 Baso % (Auto) 0.5 Lymph # (Auto) 1.8 [place] # (Auto) 0.5 Eos # (Auto) 0.1 Baso # (Auto) 0.0 Abs Immat Gran (auto) 0.02 Absolute Neuts (auto) 3.5 Absolute Nucleated RBC 0.000 Nucleated RBC % (auto) 0.0 Sodium 139 Potassium 4.0 Chloride 107 Carbon Dioxide 22 Anion Gap 14 BUN 25 H Creatinine 1.05 Estim Creat Clear Calc 74.8 Estimated GFR > 60 Random Glucose 105 Calcium 9.1 Phosphorus 3.4 Magnesium 2.2 Discharge Plan Discharge Anticipated Discharge Date/Time: 05/15/24 10:25 Patient Disposition: Home Health Service Discharge Diagnosis: 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 Referrals: Aniket Sheffield MD [Primary Care Provider] - 1 Week Discharge Medications: New omeprazole 40 mg Capsule,Delayed Release(Dr/Ec) 40 mg PO DAILY@0630 Qty: 30 0RF aspirin 81 mg Tablet,Chewable 81 mg PO DAILY Qty: 30 0RF Eliquis 5 mg tablet 5 mg PO BID Qty: 60 0RF atorvastatin 40 mg tablet 40 mg PO BEDTIME Qty: 30 0RF amlodipine 10 mg tablet 10 mg PO DAILY Qty: 30 0RF Continued venlafaxine 75 mg capsule,extended release 24hr 75 mg PO DAILY omeprazole 40 mg capsule,delayed release(DR/EC) 40 mg PO DAILY@0630 prednisolone acetate [Pred Forte] 1 % drops,suspension 1 drp ophthalmic-Right QID cyclosporine [Restasis] 0.05 % dropperette 1 drp ophthalmic-Right BID cetirizine [Zyrtec] 10 mg Tablet 10 mg PO DAILY Centrum Silver Men [id number] mcg Tablet 1 tab PO DAILY Discharge Orders: Discharge Order (Routine); Ordered 05/15/24 Ordered By: Bala Woodward Diet: Advance to usual diet Activity on Discharge: As tolerated Stand Alone Forms: Patient Portal Discharge page Print Language: Georgian Care Plan Goals: Resume all medicines as taken prior to hospital. Health Concerns: Eliquis 5 mg twice daily for anticoagulation has been added. You must continue this for at least 6 months. Aspirin has also been added to your regimen. Continue this for 6 months as well. Amlodipine was added to your blood pressure medicine. Take this as well Plan of Treatment: Follow up with your primary care provider next available as soon as possible. He will need a referral to follow up with Dr. Espinosa or your primary care's preferable neurologist Assessment: See discharge summary
--- NOTE | 2024-05-15 12:30 | MHC.CM.PN ---
Pt has been medically cleared for DC, he will go home via private transport, referral out to [facility] for home care services.
--- NOTE | 2024-05-17 15:05 | W.MHC.F2F ---
Service Date Service Date: 05/17/24 Encounter Date of encounter: 05/15/24 Encounter: Acute hospitalization Reasons for Services Signs and symptoms assessed: Needs follow up of blood pressures and neuro status status post CVA received TNK Reason for mcc: neurological assessment, medication management, medication treatment and teach disease management Homebound: Leaving the home is medically contraindicated at this time without the asist of a device and/or another person due th the listed conditions above and below. Reason homebound: unsteady gait / fall risk and unable to drive Certification: Based on the above findings, I certify that this patient is confined to the home and needs intermittent mcc care, physical therapy and/or speech therapy, or continues to need occupational therapy. The patient is under my care, and I have initiated the establishment of the plan of care. The patient will be followed by a physician who will periodically review the plan of care. Time Spent With Patient Time: Total time managing care of this patient today ____ minutes.
== END 2024-05-15 12:45 | disposition home health service (06) | DRG 62 ==
LOC: HO.ED 11:24 → HO.EDOVER 11:58 → HO.ICU 12:03 → HO.IMC 05-14 11:06
PROVIDERS: Physician Assistant; Admitting Provider Internal Medicine Critical Care Medicine; Emergency Provider Emergency Medicine; PCP Family Medicine; Visit Provider Hospitalist
DX: I63.432 Cerebral infarction due to embolism of left posterior cerebral artery (principal); G81.91 Hemiplegia, unspecified affecting right dominant side; Z20.822 Contact with and (suspected) exposure to COVID-19; H54.8 Legal blindness, as defined in USA; R29.702 NIHSS score 2; Z79.899 Other long term (current) drug therapy
CPT/HCPCS: 0241U; 36415; 70450; 70496; 70498; 70551; 80048; 80061; 82947; 83036; 83735; 84100; 84484; 85025; 85610; 85730; 92610; 93005; 93306; 99285; J1920; J3101; Q9957; Q9967

== ENCOUNTER → 2024-05-13 10:11 | Outpatient (BNV) | payer MEDICARE, SELFPAY | PROVIDERS: Emergency Provider Emergency Medicine; PCP Family Medicine; Visit Provider Radiology Diagnostic Radiology | DX: I63.9 Cerebral infarction, unspecified (principal); R90.0 Intracranial space-occupying lesion found on diagnostic imaging of central nervous system; I63.432 Cerebral infarction due to embolism of left posterior cerebral artery | CPT/HCPCS: 70450; 70496; 70551 ==

== ENCOUNTER → 2024-05-13 10:50 | Outpatient (BNV) | payer MEDICARE, SELFPAY | PROVIDERS: Emergency Provider Emergency Medicine; PCP Family Medicine; Visit Provider Psychiatry & Neurology Neurology | DX: I63.432 Cerebral infarction due to embolism of left posterior cerebral artery (principal) | CPT/HCPCS: 99223 ==

== ENCOUNTER 2024-05-13 11:57 | Outpatient (BNV) | payer MEDICARE, SELFPAY | END 2024-05-13 17:00 | PROVIDERS: Admitting Provider Internal Medicine Critical Care Medicine; Emergency Provider Emergency Medicine; PCP Family Medicine; Visit Provider Internal Medicine | DX: I63.9 Cerebral infarction, unspecified (principal); I51.89 Other ill-defined heart diseases | CPT/HCPCS: 93010; 93306 ==

== ENCOUNTER → 2024-05-13 11:57 | Outpatient (BNV) | payer MEDICARE, SELFPAY | PROVIDERS: Admitting Provider Internal Medicine Critical Care Medicine; Emergency Provider Emergency Medicine; PCP Family Medicine; Visit Provider Hospitalist | DX: I63.432 Cerebral infarction due to embolism of left posterior cerebral artery (principal) | CPT/HCPCS: 99239 ==